=== PATIENT | female | born 1950 | race Two or more races ===

== ENCOUNTER 2017-09-08 10:20 | Outpatient (CLI) | payer OTHER | END 2017-09-08 15:00 | disposition home or self-care (01) | LOC: RAD 10:20 | DX: R05 Cough (principal); M06.4 Inflammatory polyarthropathy ==

== ENCOUNTER 2017-09-26 08:20 | Outpatient (CLI) | payer OTHER | END 2017-09-26 08:31 | disposition home or self-care (01) | LOC: NUCLEAR 08:20 | DX: M06.4 Inflammatory polyarthropathy (principal) | CPT/HCPCS: 78315; A9503 ==

== ENCOUNTER 2018-04-27 11:51 | Outpatient (CLI) | payer OTHER | END 2018-04-27 12:14 | disposition home or self-care (01) | LOC: RAD 11:51 | DX: R05 Cough (principal) ==

== ENCOUNTER → 2019-02-02 | Outpatient (CLI) | payer OTHER | END | disposition home or self-care (01) | LOC: SONOGRAMA 11:34 | DX: D69.49 Other primary thrombocytopenia (principal); R94.5 Abnormal results of liver function studies; K59.1 Functional diarrhea ==

== ENCOUNTER → 2020-02-27 09:44 | Outpatient (CLI) | payer OTHER | END | disposition home or self-care (01) | LOC: LAB 09:44 | PROVIDERS: ATTEND Internal Medicine Hematology & Oncology | DX: D50.8 Other iron deficiency anemias (principal); I10 Essential (primary) hypertension; M05.29 Rheumatoid vasculitis with rheumatoid arthritis of multiple sites; E11.9 Type 2 diabetes mellitus without complications; D69.49 Other primary thrombocytopenia; D51.8 Other vitamin B12 deficiency anemias; D51.1 Vitamin B12 deficiency anemia due to selective vitamin B12 malabsorption with proteinuria; D51.3 Other dietary vitamin B12 deficiency anemia; E06.3 Autoimmune thyroiditis; R97.0 Elevated carcinoembryonic antigen [CEA]; C18.9 Malignant neoplasm of colon, unspecified; N93.8 Other specified abnormal uterine and vaginal bleeding ==

== ENCOUNTER 2020-10-23 08:59 | Outpatient (CLI) | payer OTHER | END 2020-10-23 10:07 | disposition home or self-care (01) | LOC: SONOGRAMA 08:59 | PROVIDERS: ATTEND General Practice | DX: R10.84 Generalized abdominal pain (principal); R10.2 Pelvic and perineal pain; E11.69 Type 2 diabetes mellitus with other specified complication; N28.89 Other specified disorders of kidney and ureter; R74.8 Abnormal levels of other serum enzymes ==

== ENCOUNTER 2020-11-05 16:19 | Inpatient (IN) | payer OTHER ==
[~2020-11-05] VITALS: Ht 157.5 cm; Wt 64.4 kg
[2020-11-05] MEDS ORDERED: NEURONTIN300 MG (16:28)
[2020-11-05] MEDS ORDERED: [UNRECOGNIZED DRUG - REMARK] (16:29)
--- NOTE | 2020-11-05 16:30 | NUR ---
SE RECIBE PTE ALERTA Y ORIENTADA X 3 ESFERAS LA CUAL PRESENTA DISTENCION ABDOMINAL DESDE HACE VARIAS SEMANAS. SE OBSERVA AMBAS EXTREMIDADES INFERIORES CON EDEMA.
--- NOTE | 2020-11-05 17:24 | NUR ---
PACIENTE EVALUADA POR DR. AUGUST. SE COLECTAN MUESTRAS DE LABORATORIO JELENA ORDEN MEDICA Y CON TECNICAS ASEPTICAS. SE ORIENTA A PACIENTE SOBRE TRATAMIENTO. SE ESPERA POR RESULTADOS DE LABORATORIO.
[2020-11-06] MEDS ORDERED: JANUMET 50-1,01 EACH (16:23)
[2020-11-06] MEDS ORDERED: TRIJARDY XR 101 EACH (16:23)
[2020-11-06] MEDS ORDERED: SPIRONOLACTONE25 MG (16:23)
[2020-11-06] MEDS ORDERED: FUSION PLUS CA1 EACH (16:23)
[2020-11-06] MEDS ORDERED: FOLIC ACID1 MG (16:23)
[2020-11-06] MEDS ORDERED: METHOTREXATE2.5 MG (16:24)
[2020-11-06] MEDS ORDERED: CLINDAMYCIN HC300 MG (16:24)
[2020-11-14] MEDS ORDERED: LACTULOSE20 GM/30 M PO (12:03)
[2020-11-14] MEDS ORDERED: LASIX40 MG PO (12:03)
[2020-11-14] MEDS ORDERED: ALDACTONE100 MG PO (12:04)
[2020-11-14] MEDS ORDERED: INTEGRA PLUS C1 EACH PO (12:05)
[2020-11-14] MEDS ORDERED: PROTONIX40 MG PO (12:13)
[2020-11-14] MEDS ORDERED: LIDODERM1 EACH TOP (12:31)
[2020-11-14] MEDS ORDERED: NEURONTIN300 MG PO (12:31)
== END 2020-11-14 14:31 | disposition home or self-care (01) | DRG 948 ==
LOC: ER 16:19 → SURH 19:07 → MEDI 19:07 → SURH 11-07 16:30
PROVIDERS: ADMIT Internal Medicine; ATTEND Internal Medicine
PROC: 0W9G3ZZ Drainage of Peritoneal Cavity, Percutaneous Approach (ICD-10-PCS; principal; 2020-11-06)
PROC: 0W9G3ZZ Drainage of Peritoneal Cavity, Percutaneous Approach (ICD-10-PCS; 2020-11-10)
PROC: 0DB68ZX Excision of Stomach, Via Natural or Artificial Opening Endoscopic, Diagnostic (ICD-10-PCS; 2020-11-10)
PROC: 0DB68ZX Excision of Stomach, Via Natural or Artificial Opening Endoscopic, Diagnostic (ICD-10-PCS; 2020-11-10)
PROC: 0DBN8ZX Excision of Sigmoid Colon, Via Natural or Artificial Opening Endoscopic, Diagnostic (ICD-10-PCS; 2020-11-13)
DX: R18.8 Other ascites (principal); I10 Essential (primary) hypertension; E11.40 Type 2 diabetes mellitus with diabetic neuropathy, unspecified; K59.09 Other constipation; T45.1X5A Adverse effect of antineoplastic and immunosuppressive drugs, initial encounter; M06.9 Rheumatoid arthritis, unspecified; Z20.822 Contact with and (suspected) exposure to COVID-19; K76.89 Other specified diseases of liver; E11.65 Type 2 diabetes mellitus with hyperglycemia; K29.50 Unspecified chronic gastritis without bleeding; D12.5 Benign neoplasm of sigmoid colon; K31.89 Other diseases of stomach and duodenum; D64.9 Anemia, unspecified; D69.59 Other secondary thrombocytopenia; Z79.4 Long term (current) use of insulin

== ENCOUNTER 2021-11-23 11:22 | Emergency (ER) | payer OTHER ==
[~2021-11-23] VITALS: Ht 157.5 cm; Wt 65.8 kg
[~2021-11-23 11:22] MED LIST: ALDACTONE100 MG PO; CLINDAMYCIN HC300 MG; FOLIC ACID1 MG; FUSION PLUS CA1 EACH; INTEGRA PLUS C1 EACH PO; JANUMET 50-1,01 EACH; LACTULOSE20 GM/30 M PO; LASIX40 MG PO; LIDODERM1 EACH TOP; METHOTREXATE2.5 MG; NEURONTIN300 MG; NEURONTIN300 MG PO; PROTONIX40 MG PO; SPIRONOLACTONE25 MG; TRIJARDY XR 101 EACH; [UNRECOGNIZED DRUG - REMARK]
== END 2021-11-23 17:25 | disposition home or self-care (01) ==
LOC: ER 11:22
DX: K76.89 Other specified diseases of liver (principal); Z88.0 Allergy status to penicillin; I10 Essential (primary) hypertension; E11.9 Type 2 diabetes mellitus without complications; Z79.84 Long term (current) use of oral hypoglycemic drugs

== ENCOUNTER 2022-12-27 07:15 | Inpatient (IN) | payer OTHER ==
[~2022-12-27] VITALS: Ht 157.5 cm; Wt 65.8 kg
[2023-01-11] MEDS ORDERED: SPIRONOLACTONE50 MG PO (10:02)
[2023-01-11] MEDS ORDERED: LASIX40 MG PO (10:02)
[2023-01-11] MEDS ORDERED: GABAPENTIN300 MG PO (10:02)
[2023-01-11] MEDS ORDERED: FOLIC ACID1 MG PO (10:03)
[2023-01-11] MEDS ORDERED: LACTULOSE10 GM/152 PO (10:03)
[2023-01-11] MEDS ORDERED: B-100 COMPLEX100 MG PO (10:04)
[2023-01-11] MEDS ORDERED: VITAMIN B-121000 MC2 SL (10:04)
[2023-01-11] MEDS ORDERED: XIFAXAN550 MG PO (10:07)
== END 2023-01-11 10:23 | disposition home or self-care (01) | DRG 443 ==
LOC: ER 07:15 → SURH 16:48 → SEC-K 16:48 → MEDJ 16:48 → SURH 16:56 → MEDJ 12-28 08:35
PROVIDERS: ADMIT Internal Medicine; ATTEND Internal Medicine
PROC: BW211ZZ Computerized Tomography (CT Scan) of Abdomen and Pelvis using Low Osmolar Contrast (ICD-10-PCS; 2022-12-27)
PROC: 0W9G3ZZ Drainage of Peritoneal Cavity, Percutaneous Approach (ICD-10-PCS; principal; 2022-12-28)
PROC: B24BYZZ Ultrasonography of Heart with Aorta using Other Contrast (ICD-10-PCS; 2023-01-02)
PROC: 0W9G3ZZ Drainage of Peritoneal Cavity, Percutaneous Approach (ICD-10-PCS; 2023-01-07)
DX: K71.51 Toxic liver disease with chronic active hepatitis with ascites (principal); T45.1X5A Adverse effect of antineoplastic and immunosuppressive drugs, initial encounter; K75.4 Autoimmune hepatitis; K71.7 Toxic liver disease with fibrosis and cirrhosis of liver; K76.89 Other specified diseases of liver; M06.9 Rheumatoid arthritis, unspecified; D69.59 Other secondary thrombocytopenia; E11.65 Type 2 diabetes mellitus with hyperglycemia; E11.40 Type 2 diabetes mellitus with diabetic neuropathy, unspecified; Z79.4 Long term (current) use of insulin

== ENCOUNTER 2023-02-15 10:12 | Inpatient (IN) | payer OTHER ==
[~2023-02-15] VITALS: Ht 157.5 cm; Wt 65.8 kg
[~2023-02-15 10:12] MED LIST changes: +B-100 COMPLEX100 MG PO; +FOLIC ACID1 MG PO; +GABAPENTIN300 MG PO; +LACTULOSE10 GM/152 PO; +SPIRONOLACTONE50 MG PO; +VITAMIN B-121000 MC2 SL; +XIFAXAN550 MG PO
[2023-02-15 15:47] LABS: HEMATOCRIT 30.7 % (36.0-45.00); HEMOGLOBIN 9.5 g/dL (12.0-15.00); MEAN CELL VOLUME 80.8 fL (80.00-100.00); RED BLOOD COUNT 3.79 M/uL (4.00-6.00); RED CELL DISTRIBUTION WIDTH 18.1 % (11.5-14.5)
[2023-02-15 15:50] LABS: PLATELET COUNT 109 K/uL (150-450)
[2023-02-15 16:03] LABS: PARTIAL THROMBOPLASTIN TIME 28.4 SECONDS (22.0-34.0)
[2023-02-15 16:06] LABS: ALBUMIN 2.4 gm/dL (3.4-5.0); BILIRUBIN TOTAL 0.87 mg/dL (0.3-1.2); CALCIUM 8.4 mg/dL (8.5-10.1); CREATININE SERUM 1.07 mg/dL (0.55-1.02); GFR 50.13; POTASSIUM 3.68 mEq/L (3.5-5.1); TOTAL PROTEIN 6.4 gm/dL (6.4-8.2)
[2023-02-16 07:40] LABS: HEMOGLOBIN 9.4 g/dL (12.0-15.00); MEAN CELL VOLUME 80.1 fL (80.00-100.00); MEAN CORPUSCULAR HEMOGLOBIN 25.9 pg (27.00-32.0); MEAN CORPUSCULAR HGB CONC 32.3 g/dl (32.0-36.0); RED BLOOD COUNT 3.61 M/uL (4.00-6.00); RED CELL DISTRIBUTION WIDTH 18.2 % (11.5-14.5)
[2023-02-16 07:52] LABS: PLATELET COUNT 113 K/uL (150-450)
[2023-02-16 08:20] LABS: ERYTHROCYTE SEDIMENTATION RATE 28 mm/hr
[2023-02-16 08:27] LABS: PARTIAL THROMBOPLASTIN TIME 28.9 SECONDS (22.0-34.0)
[2023-02-16 08:39] LABS: ALBUMIN 2.6 gm/dL (3.4-5.0); BILIRUBIN TOTAL 1.06 mg/dL (0.3-1.2); BILIRUBIN,CONJUGATED 0.48 mg/dL (0.0-0.2); CALCIUM 8.3 mg/dL (8.5-10.1); CREATININE SERUM 0.8 mg/dL (0.55-1.02); GFR 70.12; POTASSIUM 3.73 mEq/L (3.5-5.1)
== END 2023-02-17 09:48 | disposition home or self-care (01) | DRG 433 ==
LOC: ER 10:13 → MEDJ 18:19
PROVIDERS: Emergency Medicine; ADMIT Internal Medicine; ATTEND Internal Medicine
PROC: 0W9G3ZZ Drainage of Peritoneal Cavity, Percutaneous Approach (ICD-10-PCS; principal; 2023-02-15)
DX: K74.69 Other cirrhosis of liver (principal); R18.8 Other ascites; D64.9 Anemia, unspecified; D69.6 Thrombocytopenia, unspecified; E11.65 Type 2 diabetes mellitus with hyperglycemia; Z79.4 Long term (current) use of insulin; Z20.822 Contact with and (suspected) exposure to COVID-19

== ENCOUNTER 2023-03-02 18:25 | Inpatient (IN) | payer OTHER ==
[~2023-03-02] VITALS: Ht 157.5 cm; Wt 65.8 kg
--- NOTE | 2023-03-02 18:41 | NUR ---
PACIENTE ALERTA Y ORIENTADA X 3. REFIERE TENER DOLOR ABDOMINAL Y DISTENCION DEBIDO A PADECIMIENTO DEL HIGADO QUE PROVOCA RETENCION DE LIQUIDOS QUE LE ES REMOVIDO POR RADIOLOGO INTERVENSIONISTA Y QUE TU INTERNISTA ES DR Juan BACON. REFIERE HACEN 3 SEMANAS FUE INTERVENIDA POR EL.
--- NOTE | 2023-03-02 19:22 | NUR ---
SE EDUCA A PTE SOBRE TX MEDICO ESTA REFIERE ENTENDER. SE ALICIA MUESTRAS DE LABORATORIO UTILIZANDO MEDIDAS ASEPTICAS. SE COLOCA H/L NOEL DE EDEMA. SE ADMINISTRAN MEDICAMENTOS LOS CUALES TOLERA. SE NOTIFICA ESTUDIO DE RX PENDIENTE A REALIZAR.
[2023-03-02 19:55] LABS: MEAN CELL VOLUME 77.9 fL (80.00-100.00); MEAN CORPUSCULAR HGB CONC 33.5 g/dl (32.0-36.0); RED BLOOD COUNT 3.38 M/uL (4.00-6.00); RED CELL DISTRIBUTION WIDTH 18.5 % (11.5-14.5)
[2023-03-02 19:57] LABS: PLATELET COUNT 111 K/uL (150-450)
[2023-03-02 19:58] LABS: HEMATOCRIT 26.3 % (36.0-45.00); HEMOGLOBIN 8.8 g/dL (12.0-15.00)
[2023-03-02 20:08] LABS: INR 1.22; PARTIAL THROMBOPLASTIN TIME 28.2 SECONDS (22.0-34.0); PROTHROMBIN TIME 12.6 SECONDS (9.0-11.5)
[2023-03-02 20:09] LABS: PH,URINE 5.5 (5.0-8.0); URINE APPEARANCE Cloudy; URINE BILIRRUBIN Negative (NEGATIVE); URINE BLOOD Negative; URINE COLOR Yellow; URINE LEUKOCYTE Small; URINE NITRATE Positive; URINE PROTEIN Negative (NEGATIVE); URINE UROBILINOGEN 0.2 E.U./dl
[2023-03-02 20:10] LABS: URINE EPITHELIAL CELLS 63.6 uL (0.0-38.8); URINE RBC 7.3 uL (0.0-20.8); URINE WBC 645.4 uL (0.0-23.2)
[2023-03-02 20:12] LABS: BILIRUBIN TOTAL 0.74 mg/dL (0.3-1.2); BILIRUBIN,CONJUGATED 0.37 mg/dL (0.0-0.2); BILIRUBIN,UNCONJUGATED 0.37 mg/dL (0.0-0.6); CALCIUM 8.2 mg/dL (8.5-10.1); CREATININE SERUM 1.45 mg/dL (0.55-1.02); GFR 35.3; POTASSIUM 3.71 mEq/L (3.5-5.1)
[2023-03-02 20:12] LABS: URINE BACTERIA > 9821.5 uL (0.0-1933); URINE GLUCOSE >=1000 MG/DL (NEGATIVE)
--- NOTE | 2023-03-02 23:41 | NUR ---
SE RECIBE PTE ALERTA Y ORIENTADA X3 PENDIENTE A ADMISION. VENOPUNCION PATENETE EN H/L.
[2023-03-03] MEDS ORDERED: TOUJEO SOL300 UNIT/1 (09:07)
[2023-03-03] MEDS ORDERED: PANTOPRAZOLE SO40 MG (09:07)
[2023-03-03] MEDS ORDERED: NOVOLOG FL100 UNIT/1 (09:07)
[2023-03-03] MEDS ORDERED: GLYXAMBI 25 MG1 EACH (09:07)
[2023-03-03] MEDS ORDERED: GABAPENTIN100 M2 (09:07)
[2023-03-04 09:51] LABS: HEMATOCRIT 26.6 % (36.0-45.00); MEAN CELL VOLUME 79.1 fL (80.00-100.00); MEAN CORPUSCULAR HGB CONC 31.9 g/dl (32.0-36.0); RED BLOOD COUNT 3.36 M/uL (4.00-6.00); RED CELL DISTRIBUTION WIDTH 18.3 % (11.5-14.5)
[2023-03-04 09:57] LABS: MEAN CORPUSCULAR HEMOGLOBIN 25.2 pg (27.00-32.0)
[2023-03-04 09:59] LABS: PLATELET COUNT 110 K/uL (150-450)
[2023-03-04 10:00] LABS: HEMOGLOBIN 8.5 g/dL (12.0-15.00)
[2023-03-04 10:02] LABS: CALCIUM 8.3 mg/dL (8.5-10.1); CREATININE SERUM 1.05 mg/dL (0.55-1.02); GFR 51.23; POTASSIUM 3.87 mEq/L (3.5-5.1)
[2023-03-04] MEDS ORDERED: CIPRO250 MG PO (17:54)
== END 2023-03-04 22:54 | disposition home or self-care (01) | DRG 442 ==
LOC: ER 18:25 → SEC-K 22:06 → MEDI 03-03 21:04
PROVIDERS: General Practice; ADMIT Internal Medicine; ATTEND Internal Medicine
PROC: 0W9G3ZZ Drainage of Peritoneal Cavity, Percutaneous Approach (ICD-10-PCS; principal; 2023-03-03)
DX: K76.9 Liver disease, unspecified (principal); N39.0 Urinary tract infection, site not specified; R18.8 Other ascites; E11.65 Type 2 diabetes mellitus with hyperglycemia; Z79.4 Long term (current) use of insulin; Z20.822 Contact with and (suspected) exposure to COVID-19

== ENCOUNTER 2023-03-16 07:13 | Outpatient (CLI) | payer OTHER ==
[~2023-03-16 07:13] MED LIST changes: +CIPRO250 MG PO; +GABAPENTIN100 M2; +GLYXAMBI 25 MG1 EACH; +NOVOLOG FL100 UNIT/1; +PANTOPRAZOLE SO40 MG; +TOUJEO SOL300 UNIT/1
== END 2023-03-16 07:16 | disposition home or self-care (01) ==
LOC: SONOGRAMA 07:13
DX: R94.5 Abnormal results of liver function studies (principal); Z88.0 Allergy status to penicillin

== ENCOUNTER 2023-03-16 09:28 | Outpatient (CLI) | payer OTHER ==
[2023-03-16 10:46] LABS: HEMATOCRIT 25.4 % (36.0-45.00); MEAN CELL VOLUME 76.5 fL (80.00-100.00); MEAN CORPUSCULAR HGB CONC 33.5 g/dl (32.0-36.0); PLATELET COUNT 132 K/uL (150-450); RED BLOOD COUNT 3.32 M/uL (4.00-6.00); RED CELL DISTRIBUTION WIDTH 18.4 % (11.5-14.5)
[2023-03-16 10:55] LABS: MEAN CORPUSCULAR HEMOGLOBIN 25.6 pg (27.00-32.0)
[2023-03-16 10:56] LABS: HEMOGLOBIN 8.5 g/dL (12.0-15.00)
[2023-03-16 11:11] LABS: INR 1.16; PARTIAL THROMBOPLASTIN TIME 29.6 SECONDS (22.0-34.0)
[2023-03-16 11:14] LABS: % SATURACION 8.6 % (15-50); ALBUMIN 2.6 gm/dL (3.4-5.0); BILIRUBIN TOTAL 1.12 mg/dL (0.3-1.2); CALCIUM 8.1 mg/dL (8.5-10.1); CREATININE SERUM 1.29 mg/dL (0.55-1.02); FERRITIN 24.2 NG/ML (8-252); GFR 40.4; GLOBULINA 4.1 G/DL (2.4-3.5); POTASSIUM 3.94 mEq/L (3.5-5.1); TOTAL PROTEIN 6.7 gm/dL (6.4-8.2)
== END 2023-03-16 13:03 | disposition home or self-care (01) ==
LOC: LAB 09:28
PROVIDERS: ATTEND Internal Medicine
DX: R94.5 Abnormal results of liver function studies (principal); B19.10 Unspecified viral hepatitis B without hepatic coma; R18.0 Malignant ascites; Z88.0 Allergy status to penicillin

== ENCOUNTER 2023-04-08 08:27 | Outpatient (CLI) | payer OTHER ==
[2023-04-08 09:13] LABS: MEAN CELL VOLUME 74.5 fL (80.00-100.00); MEAN CORPUSCULAR HGB CONC 32.8 g/dl (32.0-36.0); PLATELET COUNT 158 K/uL (150-450); RED BLOOD COUNT 3.17 M/uL (4.00-6.00)
[2023-04-08 09:20] LABS: HEMATOCRIT 23.6 % (36.0-45.00); HEMOGLOBIN 7.8 g/dL (12.0-15.00); MEAN CORPUSCULAR HEMOGLOBIN 24.6 pg (27.00-32.0)
[2023-04-08 09:32] LABS: ALBUMIN 2.5 gm/dL (3.4-5.0); BILIRUBIN TOTAL 0.98 mg/dL (0.3-1.2); CALCIUM 8.2 mg/dL (8.5-10.1); CREATININE SERUM 1.63 mg/dL (0.55-1.02); GFR 30.84; GLOBULINA 3.8 G/DL (2.4-3.5); POTASSIUM 4.85 mEq/L (3.5-5.1); TOTAL PROTEIN 6.3 gm/dL (6.4-8.2)
[2023-04-08 09:37] LABS: INR 1.16; PARTIAL THROMBOPLASTIN TIME 27.9 SECONDS (22.0-34.0)
== END 2023-04-08 08:28 | disposition home or self-care (01) ==
LOC: LAB 08:27
PROVIDERS: ATTEND Internal Medicine
DX: R18.8 Other ascites (principal); Z13.29 Encounter for screening for other suspected endocrine disorder; Z88.0 Allergy status to penicillin

== ENCOUNTER 2023-04-15 07:48 | Outpatient (CLI) | payer OTHER ==
[2023-04-15 08:50] LABS: MEAN CELL VOLUME 74.6 fL (80.00-100.00); MEAN CORPUSCULAR HGB CONC 31.8 g/dl (32.0-36.0); PLATELET COUNT 186 K/uL (150-450); RED BLOOD COUNT 2.94 M/uL (4.00-6.00); RED CELL DISTRIBUTION WIDTH 18.3 % (11.5-14.5)
[2023-04-15 08:58] LABS: HEMATOCRIT 21.9 % (36.0-45.00); MEAN CORPUSCULAR HEMOGLOBIN 23.8 pg (27.00-32.0)
[2023-04-15 09:26] LABS: INR 1.2; PARTIAL THROMBOPLASTIN TIME 28.8 SECONDS (22.0-34.0); PROTHROMBIN TIME 12.4 SECONDS (9.0-11.5)
[2023-04-15 09:30] LABS: ALBUMIN 2.5 gm/dL (3.4-5.0); BILIRUBIN TOTAL 1.24 mg/dL (0.3-1.2); CALCIUM 8.3 mg/dL (8.5-10.1); CREATININE SERUM 1.81 mg/dL (0.55-1.02); GFR 27.33; GLOBULINA 3.2 G/DL (2.4-3.5); POTASSIUM 5.6 mEq/L (3.5-5.1); TOTAL PROTEIN 5.7 gm/dL (6.4-8.2)
== END 2023-04-15 08:01 | disposition home or self-care (01) ==
LOC: LAB 07:48
PROVIDERS: ATTEND Internal Medicine
DX: R18.8 Other ascites (principal); Z13.29 Encounter for screening for other suspected endocrine disorder; Z88.0 Allergy status to penicillin